=== PATIENT | male | born 1960 | race Hispanic/Latino ===

== ENCOUNTER → 2019-07-26 | Outpatient (CLI) | payer MEDICARE | END | disposition home or self-care (01) | LOC: RAH 09:28 | PROVIDERS: ATTEND Family Medicine | DX: M43.17 Spondylolisthesis, lumbosacral region (principal); M48.07 Spinal stenosis, lumbosacral region; M54.16 Radiculopathy, lumbar region | CPT/HCPCS: 72148 ==

== ENCOUNTER 2020-03-16 18:24 | Inpatient (IN) | payer MEDICARE ==
[~2020-03-16] VITALS: Ht 162.6 cm; Wt 68.9 kg
[2020-03-16] MEDS: AZITHROMYCIN 500MG+NS 250ML 250 ML IV SCH (01:00)
[~2020-03-16 18:24] MED LIST: ETOMIDATE 2 MG/ML 10 ML VIAL IVP ONE; SUCCINYLCHOLINE CHLORIDE 20 MG/ML 10 ML VIAL IVP ONE
[2020-03-16] MEDS ORDERED: SODIUM CHLORIDE 0.9% 1000ML 1,000 ML IV ONE (18:52)
[2020-03-16] MEDS ORDERED: NOREPINEPHRINE 4MG/NS 250ML 250 ML IV ONE ×3 (19:05→21:36)
[2020-03-16] MEDS ORDERED: ZOSYN 3.375GM+NS 50ML 50 ML IV ONE (19:11)
[2020-03-16] MEDS ORDERED: PROPOFOL 1000 MG/100 ML 0 ML IV ONE (19:17)
[2020-03-16 19:59] LABS: ABG BASE EXCESS -11.4 mmol/L (-2.0-3.0); ABG HCO3 13.8 mmol/L (21.0-28.0); ABG OXYGEN SATURATION 99.4 % (95.0-99.0); ABG PCO2 30 mmHg (35-48)
[2020-03-16 20:30] LABS: AMMONIA 29 umol/L (11-32); BASOPHILS % (AUTO) 0.5 % (0.0-5.0); EOSINOPHILS % (AUTO) 0.5 % (0.0-8.0); MEAN CORPUSCULAR HEMOGLOBIN 28.2 pg (27.0-33.0); MEAN CORPUSCULAR HGB CONC 29.4 g/dL (32.0-36.0); MONOCYTES % (AUTO) 4.3 % (3.0-13.0); NEUTROPHILS % (AUTO) 59.9 % (40.0-77.0); NUCLEATED RED BLOOD CELLS 2.2 % (0.0-0.19); PLATELET COUNT (AUTO) 141 K/uL (130-400); RED BLOOD CELL COUNT(AUTO) 5.21 MIL/uL (4.50-6.20); RED CELL DISTRIBUTION WIDTH 14.3 % (11.0-15.5); WHITE BLOOD COUNT (AUTO) 3.7 K/uL (4.8-10.8)
[2020-03-16 20:32] LABS: PARTIAL THROMBOPLASTIN TIME 19.7 SEC (26.3-35.5); PROTHROMBIN TIME 10.8 SEC (9.6-11.6)
[2020-03-16 20:35] LABS: ACETAMINOPHEN < 1 mcg/mL (10-29); ALCOHOL, BLOOD < 3 mg/dL (0-10); SALICYLATE < 2.8 mg/dL (2.8-20.0)
[2020-03-16] MEDS ORDERED: PROPOFOL 1000 MG/100 ML 100 ML IV ONE (20:40)
[2020-03-16] MEDS ORDERED: MEROPENEM 1 GM VIAL ONE (20:40)
[2020-03-16] MEDS ORDERED: METHYLPREDNISOLONE SOD SUCC 125MG/2ML VIAL ONE (20:40)
[2020-03-16] MEDS ORDERED: SODIUM BICARB 50MEQ 50ML VIAL ONE (20:41)
[2020-03-16 20:54] LABS: ALBUMIN 2.5 g/dL (3.5-5.0); BILIRUBIN,TOTAL 0.6 mg/dL (0.2-1.0); CREATININE 3.9 mg/dL (0.5-1.5); POTASSIUM 4.1 mmol/L (3.5-5.1); TOTAL PROTEIN, SERUM 6.3 g/dL (6.0-8.3); TROPONIN I 0.14 ng/mL (0.00-0.06)
[2020-03-16] MEDS ORDERED: PROPOFOL 1000 MG/100 ML 100 ML IV PRN (21:00)
[2020-03-16 21:09] LABS: APPEARANCE,URINE CLEAR (CLEAR); BILIRUBIN,URINE Negative (NEGATIVE); COLOR,URINE Yellow (YELLOW); GLUCOSE, URINE (UA) Negative (NEGATIVE); KETONES,URINE Negative (NEGATIVE); LEUKOCYTE ESTERASE ,URINE Negative (NEGATIVE); NITRATE,URINE Negative (NEGATIVE); OCCULT BLOOD,URINE Negative (NEGATIVE); PROTEIN,URINE Negative (NEGATIVE)
[2020-03-16] MEDS: SODIUM CHLORIDE 0.9% 1000ML 1,000 ML IV SCH (21:15)
[2020-03-16 21:17] LABS: AMPHET/METH SCREEN,URINE NEGATIVE (NEGATIVE); BARBITURATE SCREEN, URINE NEGATIVE (NEGATIVE); BENZODIAZEPINES SCREEN,URINE NEGATIVE (NEGATIVE); CANNABINOID SCREEN,URINE NEGATIVE (NEGATIVE); COCAINE SCREEN,URINE NEGATIVE (NEGATIVE); OPIATE SCREEN,URINE NEGATIVE (NEGATIVE); PHENCYCLIDINE SCREEN,URINE NEGATIVE (NEGATIVE)
[2020-03-16 21:33] LABS: ABG BASE EXCESS -5.2 mmol/L (-2.0-3.0); ABG HCO3 18.2 mmol/L (21.0-28.0); ABG PCO2 30 mmHg (35-48)
[2020-03-16] MEDS ORDERED: DEXTROSE 5%-WATER 1,000 ML IV ONE (21:56)
[2020-03-16 22:03] LABS: CREATININE 3.4 mg/dL (0.5-1.5); POTASSIUM 3.3 mmol/L (3.5-5.1)
--- NOTE | 2020-03-16 22:40 | NUR ---
ADMISSION 2240 RECEIVED ED REPORT FROM PAUL BYRNE INTERNET APPLICATION DEVELOPER PT [phone] PT ARRIVED SEDATED /INTUBATED ON MULTIPLE PRESSORS AT THIS TIME UNABLE TO COMPLETE ADMISSION DATABASE D/T PT CONDITION. PT FROM CORRECTION NO MEDICATIONS AT BEDSIDE. TONYA MYRICK NOTIFIED OF PT ADMIT TO UNIT PT CONDITION V/S AND ORDERS REVIEWED AND CLARIFIED NEW ORDERS RECEIVED AND IMPLEMENTED. PT CONTINUED TO BE MONITORED.
[2020-03-16] MEDS ORDERED: AZITHROMYCIN 500MG+NS 250ML 250 ML IV ONE (23:03)
[2020-03-16 23:36] VITALS: BP 95/61
[2020-03-16 23:41] VITALS: BP 98/63
[2020-03-16 23:46] VITALS: BP 90/61
[2020-03-16 23:51] VITALS: BP 100/71
[2020-03-16 23:56] VITALS: BP 99/67
[2020-03-17] VITALS (61 sets, daily range): BP systolic 88–124; BP diastolic 32–81
[2020-03-17] MEDS: HYDROXYCHLOROQUINE SULFATE 200 MG TAB NG SCH ×3 (00:09→08:55)
[2020-03-17] MEDS: AZITHROMYCIN 500MG+NS 250ML 250 ML IV SCH ×2 (00:09→20:46)
[2020-03-17] MEDS: FAMOTIDINE/PF 20 MG/2 ML VIAL IV SCH ×3 (00:12→20:10)
[2020-03-17] MEDS ORDERED: ATROPINE SULFATE 0.1 MG/ML 10 ML SYG IVP ONE (00:19)
[2020-03-17] MEDS ORDERED: NOREPINEPHRINE 4MG/NS 250ML 250 ML IV ONE (00:36)
[2020-03-17] MEDS: FENTANYL 1000MCG+NS 100ML 100 ML IV SCH ×3 (00:45→16:13)
[2020-03-17] MEDS ORDERED: DOPAMINE 800MG/D5 250ML 250 ML IV ONE (01:07)
[2020-03-17] MEDS: ALBUTEROL INHALER 90MCG/INH IH SCH ×4 (03:15→21:15)
[2020-03-17] MEDS ORDERED: VASOPRESSIN 20 UNITS/ML 1ML VIAL ONE (04:32)
[2020-03-17] MEDS ORDERED: DEXTROSE 5%-WATER 1,000 ML IV ONE (04:45)
[2020-03-17] MEDS: VASOPRESSIN 20 UNITS/NS 100ML IV SCH ×6 (05:03→23:37)
[2020-03-17] MEDS: NOREPINEPHRINE 4MG/NS 250ML 250 ML IV SCH ×4 (05:04→16:26)
[2020-03-17] MEDS: SODIUM CHLORIDE 0.9% 1000ML 1,000 ML IV SCH (05:15)
[2020-03-17] MEDS: DEXTROSE 5%-WATER 1,000 ML IV SCH ×3 (05:15→20:10)
[2020-03-17 05:50] LABS: HEMATOCRIT 44.1 % (42-54); MEAN CORPUSCULAR HEMOGLOBIN 28.4 pg (27.0-33.0); MEAN CORPUSCULAR HGB CONC 29.7 g/dL (32.0-36.0); MEAN CORPUSCULAR VOLUME 95.7 fL (79-99); PLATELET COUNT (AUTO) 106 K/uL (130-400); RED BLOOD CELL COUNT(AUTO) 4.61 MIL/uL (4.50-6.20); RED CELL DISTRIBUTION WIDTH 14.1 % (11.0-15.5); WHITE BLOOD COUNT (AUTO) 3.9 K/uL (4.8-10.8)
[2020-03-17 06:01] LABS: INR 0.99 (0.85-1.15); PROTHROMBIN TIME 10.7 SEC (9.6-11.6)
[2020-03-17 06:08] LABS: BILIRUBIN,TOTAL 0.5 mg/dL (0.2-1.0); CREATININE 3.2 mg/dL (0.5-1.5); MAGNESIUM 2.5 mg/dL (1.80-2.40); PHOSPHORUS 3.5 mg/dL (2.5-4.9); POTASSIUM 3.7 mmol/L (3.5-5.1); TOTAL PROTEIN, SERUM 5.4 g/dL (6.0-8.3); URIC ACID 10.4 mg/dL (2.6-7.2)
[2020-03-17 07:26] LABS: BAND NEUTROPHILS % (MANUAL) 41 % (0-2); LYMPHOCYTES % (MANUAL) 16 % (22-44); MAN.DIFF COMMENT-IMPRESSION MANUAL DIFFERENTIAL; MONOCYTES % (MANUAL) 11 % (2-9); SEGMENTED NEUTROPHILS % 32 % (40-70)
[2020-03-17 07:27] LABS: PLATELET MORPHOLOGY COMMENT SLIGHTLY DECREASED
[2020-03-17] MEDS ORDERED: ENOXAPARIN SODIUM 40 MG/0.4 ML SYRINGE SQ SCH (09:00)
[2020-03-17 10:16] LABS: CREATININE 3.1 mg/dL (0.5-1.5); POTASSIUM 3.8 mmol/L (3.5-5.1)
[2020-03-17] MEDS ORDERED: TAMS-1 PO (10:34)
[2020-03-17] MEDS ORDERED: OXYB-66 PO (10:34)
[2020-03-17] MEDS ORDERED: BENZ2TAB10 PO (10:34)
[2020-03-17] MEDS ORDERED: FAMO20TA8 PO (10:34)
[2020-03-17 11:05] LABS: CRP QUANTITATIVE 245.6 mg/L (0.00-9.0)
[2020-03-17] MEDS ORDERED: ASPI-1197 PO (11:08)
[2020-03-17] MEDS ORDERED: D-MA50PO PO (11:08)
[2020-03-17] MEDS ORDERED: KETO15CR2 TP (11:08)
[2020-03-17] MEDS ORDERED: POLY17PO29 PO (11:08)
[2020-03-17] MEDS ORDERED: ATOR40TA71 PO (11:08)
[2020-03-17] MEDS ORDERED: PSYL0.5240 PO (11:08)
[2020-03-17] MEDS ORDERED: FINA5TAB41 PO (11:08)
[2020-03-17] MEDS ORDERED: OLAN7.5T9 PO (11:08)
[2020-03-17] MEDS ORDERED: LORA0.5T83 PO (11:08)
[2020-03-17] MEDS ORDERED: CHOL100040 PO (11:08)
[2020-03-17] MEDS ORDERED: PANT40TA54 PO (11:08)
[2020-03-17] MEDS ORDERED: LIFI1DRO OU (11:08)
[2020-03-17] MEDS ORDERED: MIRT45TA83 PO (11:08)
[2020-03-17] MEDS ORDERED: PROP10TA72 PO (11:08)
[2020-03-17] MEDS ORDERED: RISP2TAB22 PO (11:08)
[2020-03-17] MEDS ORDERED: OLAN10TA20 PO (11:08)
[2020-03-17] MEDS ORDERED: FLUT50DI2 IH (11:08)
[2020-03-17] MEDS: INSULIN HUMULIN R 100 UNIT/ML 3ML SQ SCH ×2 (11:38→18:00)
--- NOTE | 2020-03-17 12:57 | NUR ---
ALE PLAN PATIENT IN [facility] ICU UNIT VENTED. ZULAY WILL CONTINUE TO FOLLOW. Addendum: 03/17/20 at 1302 by RODOLFO PARKINSON RN CM Amended: Links added.
[2020-03-17] MEDS: MIDODRINE HCL 5 MG TABLET PO SCH ×2 (13:37→20:10)
[2020-03-17] MEDS: CEFEPIME HCL 2 GM VIAL IVP SCH (13:38)
[2020-03-17] MEDS: MIDAZOLAM HCL 50 MG in SODIUM CHLORIDE 0.9% 50 ML IV SCH ×2 (13:40→22:41)
--- NOTE | 2020-03-17 15:46 | NUR ---
RD NOTIFICATION - TUBE FEEDING Tube Feeding recommendation: Vital HP - High Protein, initiate at 25mls/hr. Adv as tolerated by 5mls every 5 hours to goal rate. Goal rate: 50mls/hr (1200kcal, 105gm Protein, 1003 free H2O) Flushes: 100mL every 6hours *Recommendations faxed to 2nd floor, Pod C, [phone]. RN notified. Pt with elevated serum sodium (164) Noted, pt with compromised renal function (BUN 129, Cr 3.1, GFR 22). RD to continue to monitor. Please notify as additional nutrition concerns arise. Addendum: 03/17/20 at [address] Amended: Links added.
--- NOTE | 2020-03-17 15:58 | NUR ---
[facility] CONSULT PATIENT ASSESSED REQUESTED: [facility] RECOMMENDATIONS SUBMITTED AND REPORT GIVEN TO PATIENT'S NURSE.
--- NOTE | 2020-03-17 15:59 | NUR ---
[facility] CONSULT PATIENT ASSESSED REQUESTED: [facility] RECOMMENDATIONS SUBMITTED AND REPORT GIVEN TO PATIENT'S NURSE FABIAN. Addendum: 03/17/20 at 1559 by LESTER ALLEN LVN LVN W Amended: Links added.
[2020-03-17] MEDS: HONEY 1 APPL/ML TUBE TP SCH (16:25)
[2020-03-17 19:07] LABS: CREATININE 2.5 mg/dL (0.5-1.5); POTASSIUM 3.1 mmol/L (3.5-5.1)
[2020-03-17] MEDS: DOPAMINE 800MG/D5 250ML 250 ML IV PRN (23:50)
[2020-03-18] VITALS (94 sets, daily range): BP systolic 87–139; BP diastolic 41–74
[2020-03-18] MEDS: NOREPINEPHRINE 4MG/NS 250ML 250 ML IV SCH ×3 (01:24→14:52)
[2020-03-18] MEDS: FENTANYL 1000MCG+NS 100ML 100 ML IV SCH ×3 (02:04→21:17)
[2020-03-18] MEDS: ALBUTEROL INHALER 90MCG/INH IH SCH ×4 (03:15→20:25)
[2020-03-18] MEDS: MIDODRINE HCL 5 MG TABLET PO SCH ×3 (05:39→20:25)
[2020-03-18] MEDS: DEXTROSE 5%-WATER 1,000 ML IV SCH (05:39)
[2020-03-18 05:42] LABS: BASOPHILS % (AUTO) 0.3 % (0.0-5.0); EOSINOPHILS % (AUTO) 0.2 % (0.0-8.0); HEMATOCRIT 36.6 % (42-54); LYMPHOCYTES % (AUTO) 13.4 % (21.0-51.0); MEAN CORPUSCULAR HEMOGLOBIN 28.5 pg (27.0-33.0); MEAN CORPUSCULAR HGB CONC 30.3 g/dL (32.0-36.0); MEAN CORPUSCULAR VOLUME 94.1 fL (79-99); MONOCYTES % (AUTO) 2.5 % (3.0-13.0); NEUTROPHILS % (AUTO) 80.5 % (40.0-77.0); NUCLEATED RED BLOOD CELLS 0.4 % (0.0-0.19); PLATELET COUNT (AUTO) 93 K/uL (130-400); RED BLOOD CELL COUNT(AUTO) 3.89 MIL/uL (4.50-6.20); RED CELL DISTRIBUTION WIDTH 14.1 % (11.0-15.5); WHITE BLOOD COUNT (AUTO) 12.6 K/uL (4.8-10.8)
[2020-03-18] MEDS: INSULIN HUMULIN R 100 UNIT/ML 3ML SQ SCH ×4 (05:48→18:00)
[2020-03-18 05:52] LABS: CREATININE 2.2 mg/dL (0.5-1.5); MAGNESIUM 2.1 mg/dL (1.80-2.40); PHOSPHORUS 2.2 mg/dL (2.5-4.9)
[2020-03-18] MEDS: VASOPRESSIN 20 UNITS/NS 100ML IV SCH ×2 (07:42)
[2020-03-18] MEDS: ENOXAPARIN SODIUM 30 MG/0.3 ML SQ SCH (08:43)
[2020-03-18] MEDS: CEFEPIME HCL 2 GM VIAL IVP SCH (08:43)
[2020-03-18] MEDS: FAMOTIDINE/PF 20 MG/2 ML VIAL IV SCH ×2 (08:44→20:25)
[2020-03-18] MEDS: HONEY 1 APPL/ML TUBE TP SCH (08:44)
[2020-03-18] MEDS: MIDAZOLAM HCL 50 MG in SODIUM CHLORIDE 0.9% 50 ML IV SCH (10:46)
[2020-03-18 11:01] LABS: CREATININE 1.9 mg/dL (0.5-1.5)
[2020-03-18 11:05] LABS: POTASSIUM 2.9 mmol/L (3.5-5.1)
--- NOTE | 2020-03-18 11:13 | NUR ---
ALE PLAN PATIENT IN ICU VENTED. UNSTABLE CONDITION ZULAY WILL CONTINUE TO FOLLOW. Addendum: 03/18/20 at 1114 by RODOLFO PARKINSON RN CM Amended: Links added.
--- NOTE | 2020-03-18 11:41 | NUR ---
Dr Apodaca Called Dr. Apodaca made aware of critical values of potassium 2.9 and Elevated BUN and creatinine order for potassium protocol received
[2020-03-18] MEDS ORDERED: POTASSIUM CHLORIDE 20 MEQ ERTAB PO PRN (11:45)
[2020-03-18] MEDS: POTASSIUM CHLORIDE 20MEQ/100ML 100 ML IV PRN (12:01)
[2020-03-18] MEDS: POTASSIUM CHLORIDE 10% ELIXIR 20 MEQ/15 ML UDCUP PO PRN ×5 (12:01→22:59)
[2020-03-18] MEDS ORDERED: LACTATED RINGERS 1000ML 1,000 ML IV ONE (12:13)
[2020-03-18] MEDS: LACTATED RINGERS 1000ML 1,000 ML IV SCH ×2 (12:15→20:25)
[2020-03-18] MEDS ORDERED: VANCOMYCIN PROTOCOL PER PHARMACY IV SCH (13:15)
[2020-03-18] MEDS ORDERED: VANCOMYCIN 1.5 GM in SODIUM CHLORIDE 0.9% 250 ML IV SCH (13:15)
[2020-03-18] MEDS: VANCOMYCIN 1GM+NS 250ML 250 ML IV SCH (13:39)
[2020-03-18 19:21] LABS: CREATININE 1.7 mg/dL (0.5-1.5); POTASSIUM 3.3 mmol/L (3.5-5.1)
[2020-03-18] MEDS: AZITHROMYCIN 500MG+NS 250ML 250 ML IV SCH (20:25)
[2020-03-19] VITALS (89 sets, daily range): BP systolic 85–138; BP diastolic 46–82
[2020-03-19] MEDS: ALBUTEROL INHALER 90MCG/INH IH SCH ×4 (03:48→22:16)
[2020-03-19] MEDS: NOREPINEPHRINE 4MG/NS 250ML 250 ML IV SCH (03:48)
[2020-03-19] MEDS: MIDAZOLAM HCL 50 MG in SODIUM CHLORIDE 0.9% 50 ML IV SCH (03:49)
[2020-03-19] MEDS: MIDODRINE HCL 5 MG TABLET PO SCH ×3 (04:35→21:30)
[2020-03-19 04:45] LABS: BASOPHILS % (AUTO) 0.2 % (0.0-5.0); EOSINOPHILS % (AUTO) 2.2 % (0.0-8.0); HEMATOCRIT 31.9 % (42-54); LYMPHOCYTES % (AUTO) 10.4 % (21.0-51.0); MEAN CORPUSCULAR HEMOGLOBIN 27.9 pg (27.0-33.0); MEAN CORPUSCULAR HGB CONC 30.4 g/dL (32.0-36.0); MEAN CORPUSCULAR VOLUME 91.7 fL (79-99); NEUTROPHILS % (AUTO) 84.3 % (40.0-77.0); NUCLEATED RED BLOOD CELLS 0.2 % (0.0-0.19); PLATELET COUNT (AUTO) 80 K/uL (130-400); RED BLOOD CELL COUNT(AUTO) 3.48 MIL/uL (4.50-6.20)
[2020-03-19 04:58] LABS: ALBUMIN 1.5 g/dL (3.5-5.0); BILIRUBIN,TOTAL 0.4 mg/dL (0.2-1.0); CREATININE 1.6 mg/dL (0.5-1.5); MAGNESIUM 2.3 mg/dL (1.80-2.40); PHOSPHORUS 1.8 mg/dL (2.5-4.9); POTASSIUM 4.6 mmol/L (3.5-5.1); TOTAL PROTEIN, SERUM 5.4 g/dL (6.0-8.3)
[2020-03-19] MEDS: INSULIN HUMULIN R 100 UNIT/ML 3ML SQ SCH ×4 (05:43→18:00)
--- NOTE | 2020-03-19 06:00 | NUR ---
[employer] credit control officer paged for critical sodium lab value, awaiting callback.
--- NOTE | 2020-03-19 06:43 | NUR ---
[employer] LOADING UNIT OPERATOR CRIMPING did not return call, re-paged and awaiting for callback.
[2020-03-19] MEDS: FAMOTIDINE/PF 20 MG/2 ML VIAL IV SCH ×2 (10:28→21:30)
[2020-03-19] MEDS: ENOXAPARIN SODIUM 30 MG/0.3 ML SQ SCH (10:29)
[2020-03-19] MEDS: HONEY 1 APPL/ML TUBE TP SCH (10:30)
[2020-03-19] MEDS: CEFEPIME HCL 2 GM VIAL IVP SCH (10:47)
[2020-03-19] MEDS: FENTANYL 1000MCG+NS 100ML 100 ML IV SCH (11:38)
[2020-03-19] MEDS: DOPAMINE 800MG/D5 250ML 250 ML IV PRN (11:45)
[2020-03-19] MEDS ORDERED: DEXTROSE 5%-WATER 1,000 ML IV SCH (12:15)
[2020-03-19] MEDS ORDERED: PHARMACY COMMUNICATION MISC SCH (13:00)
[2020-03-19] MEDS: VASOPRESSIN 20 UNITS/NS 100ML IV SCH ×4 (13:38→22:15)
[2020-03-19] MEDS: DEXTROSE 5%-WATER 1,000 ML IV SCH (13:39)
[2020-03-19 13:52] LABS: CHLORIDE,URINE RANDOM 100 mmol/L (110-250); POTASSIUM,URINE RANDOM 37 mmol/L (25-125); SODIUM,URINE RANDOM 74 mmol/l (40-220)
[2020-03-19] MEDS: VANCOMYCIN 1GM+NS 250ML 250 ML IV SCH (14:13)
[2020-03-19] MEDS: AZITHROMYCIN 500MG+NS 250ML 250 ML IV SCH (21:30)
[2020-03-20] VITALS (42 sets, daily range): BP systolic 85–125; BP diastolic 47–78
[2020-03-20] MEDS: DEXTROSE 5%-WATER 1,000 ML IV SCH ×4 (03:39→22:11)
[2020-03-20] MEDS: ALBUTEROL INHALER 90MCG/INH IH SCH ×4 (03:39→20:31)
[2020-03-20 05:31] LABS: BASOPHILS % (AUTO) 0.2 % (0.0-5.0); EOSINOPHILS % (AUTO) 0.6 % (0.0-8.0); HEMATOCRIT 31.2 % (42-54); LYMPHOCYTES % (AUTO) 6.7 % (21.0-51.0); MEAN CORPUSCULAR HEMOGLOBIN 28.4 pg (27.0-33.0); MEAN CORPUSCULAR HGB CONC 29.8 g/dL (32.0-36.0); MEAN CORPUSCULAR VOLUME 95.1 fL (79-99); MONOCYTES % (AUTO) 3.8 % (3.0-13.0); PLATELET COUNT (AUTO) 66 K/uL (130-400); RED BLOOD CELL COUNT(AUTO) 3.28 MIL/uL (4.50-6.20); RED CELL DISTRIBUTION WIDTH 14.4 % (11.0-15.5); WHITE BLOOD COUNT (AUTO) 9.6 K/uL (4.8-10.8)
[2020-03-20] MEDS: MIDODRINE HCL 5 MG TABLET PO SCH ×3 (05:49→20:31)
[2020-03-20 05:53] LABS: ALBUMIN 1.6 g/dL (3.5-5.0); BILIRUBIN,TOTAL 0.3 mg/dL (0.2-1.0); CREATININE 1.4 mg/dL (0.5-1.5); PHOSPHORUS 2.6 mg/dL (2.5-4.9); POTASSIUM 4.1 mmol/L (3.5-5.1); TOTAL PROTEIN, SERUM 5.6 g/dL (6.0-8.3)
[2020-03-20] MEDS: INSULIN HUMULIN R 100 UNIT/ML 3ML SQ SCH ×4 (06:00→18:00)
[2020-03-20] MEDS: FENTANYL 1000MCG+NS 100ML 100 ML IV SCH (06:39)
[2020-03-20] MEDS: VASOPRESSIN 20 UNITS/NS 100ML IV SCH ×2 (06:40)
[2020-03-20] MEDS: FAMOTIDINE/PF 20 MG/2 ML VIAL IV SCH ×2 (08:02→20:31)
[2020-03-20] MEDS: CEFEPIME HCL 2 GM VIAL IVP SCH (08:27)
[2020-03-20 09:17] LABS: INR 0.96 (0.85-1.15); PROTHROMBIN TIME 10.4 SEC (9.6-11.6)
[2020-03-20] MEDS: HONEY 1 APPL/ML TUBE TP SCH (09:31)
[2020-03-20 09:55] LABS: CREATININE,URINE RANDOM 28 mg/dL (30-135); POTASSIUM,URINE RANDOM 40 mmol/L (25-125); SODIUM,URINE RANDOM 70 mmol/l (40-220)
--- NOTE | 2020-03-20 10:30 | NUR ---
PICC PICC LINE 6FRENCH 3 LUMEN INSERTED TO RIGHT UPPER ARM USING STERILE TECHNIQUE, NO ADVERSE REACTIONS NOTED. PT HARJIT WELL. ALL 3 PORTS FLUSHED WITHOUT DIFFICULTY, AND GOOD BLOOD RETURN TO ALL PORTS. PICC LINE INSERTED AT 43CM RACHEL AND 7 CM EXPOSED, STERILE DRESSING APPLIED AFTER COMPLETION. REPORT GIVEN TO Rusty RAMIREZ RN. PICC LINE READY TO BE USED PER [facility] CONFIRMATION TIP PLACED AT LOWER 1/3 SVC OR CAJ.
[2020-03-20 13:06] LABS: ABG HCO3 20.3 mmol/L (21.0-28.0); ABG OXYGEN SATURATION 95.4 % (95.0-99.0); ABG PCO2 32 mmHg (35-48)
[2020-03-20 13:06] LABS: ABG BASE EXCESS -1.7 mmol/L (-2.0-3.0); ABG HCO3 19.8 mmol/L (21.0-28.0); ABG OXYGEN SATURATION 98.6 % (95.0-99.0); ABG PCO2 26 mmHg (35-48)
[2020-03-20 13:07] LABS: ABG BASE EXCESS -3.8 mmol/L (-2.0-3.0); ABG HCO3 19.1 mmol/L (21.0-28.0); ABG OXYGEN SATURATION 98.9 % (95.0-99.0); ABG PCO2 30 mmHg (35-48)
--- NOTE | 2020-03-20 13:54 | NUR ---
SPOKE TO SISTER VALERIE BARNES VIA PHONE PT HAS SPECIAL NEEDS. HAS LIVED AT [facility] FOR SEVERAL YEARS, HAS BEEN IN AND OUT OF HOSPITAL- LAST TO [facility]- AND THEN TO [facility] AND THEN BACK TO [facility]. HAS NOT SEEN PATIENT SINCE 02/02. NORMALLY ABLE TO MAKE NEEDS KNOWN, WEAK, NEEDS ASSISTANCE TO AMBULATE, BAILEE AT [facility] IS CONTACT [phone] PLAN OF HAVE SISTER TO BEDSIDE. PT IS CRITICALLY ILL, STILL ON PRESSORS, AND FAMILY MAY NEED VISUALS TO UNDERSTAND SEVERITY. Addendum: 03/20/20 at 1358 by EMILIA ARMANDO RN Amended: Links added.
[2020-03-20 14:00] LABS: ABG BASE EXCESS 0.7 mmol/L (-2.0-3.0); ABG OXYGEN SATURATION 99.1 % (95.0-99.0); ABG PCO2 31 mmHg (35-48)
--- NOTE | 2020-03-20 14:18 | NUR ---
RD FOLLOW UP Pt remains intubated and sedated on Tube feeding (Vital HP). Tube feedings held pending procedure, as per RN. Noted, 100mL residual yesterday evening. Elevated serum sodium (156). Recommend continue tube feeding, post procedure. Recommend continue Flushes at 250mL every [address] to monitor tolerance, residuals, weight, nutrition labs. Please notify as additional concerns arise. Thank you. Addendum: 03/20/20 at [address] Amended: Links added.
[2020-03-20] MEDS: AZITHROMYCIN 500MG+NS 250ML 250 ML IV SCH (20:31)
[2020-03-20] MEDS ORDERED: HEPARIN SODIUM 5000UNIT/ML 1ML VIAL SQ SCH (21:00)
[2020-03-20] MEDS ORDERED: VASOPRESSIN 20 UNITS/ML 1ML VIAL ONE (21:34)
--- NOTE | 2020-03-20 21:40 | NUR ---
[employer]AR AND [employer] PUMP OPERATOR Rico called for critical sodium level and increased urine output. Orders received and entered in system. Free water increased to 350 Q4H, D5W given and insulin sliding scale implemented.
[2020-03-20] MEDS ORDERED: VASOPRESSIN 20 UNITS in SODIUM CHLORIDE 0.9% 100 ML IV SCH (22:00)
[2020-03-21] VITALS (23 sets, daily range): BP systolic 94–140; BP diastolic 55–80
[2020-03-21] MEDS: DEXTROSE 5%-WATER 1,000 ML IV SCH ×3 (02:43→11:56)
[2020-03-21] MEDS: ALBUTEROL INHALER 90MCG/INH IH SCH ×4 (03:15→21:15)
[2020-03-21 05:00] LABS: BASOPHILS % (AUTO) 0.1 % (0.0-5.0); EOSINOPHILS % (AUTO) 4.2 % (0.0-8.0); HEMATOCRIT 32.6 % (42-54); LYMPHOCYTES % (AUTO) 10.1 % (21.0-51.0); MEAN CORPUSCULAR HEMOGLOBIN 28.8 pg (27.0-33.0); MEAN CORPUSCULAR HGB CONC 30.7 g/dL (32.0-36.0); MEAN CORPUSCULAR VOLUME 93.9 fL (79-99); MONOCYTES % (AUTO) 4.4 % (3.0-13.0); NEUTROPHILS % (AUTO) 79.9 % (40.0-77.0); PLATELET COUNT (AUTO) 61 K/uL (130-400); RED BLOOD CELL COUNT(AUTO) 3.47 MIL/uL (4.50-6.20); RED CELL DISTRIBUTION WIDTH 13.9 % (11.0-15.5); WHITE BLOOD COUNT (AUTO) 6.8 K/uL (4.8-10.8)
[2020-03-21 05:13] LABS: FIBRINOGEN 640 mg/dL (180-350); INR 0.95 (0.85-1.15); PROTHROMBIN TIME 10.3 SEC (9.6-11.6)
[2020-03-21 05:16] LABS: ALBUMIN 1.5 g/dL (3.5-5.0); BILIRUBIN,TOTAL 0.4 mg/dL (0.2-1.0); PHOSPHORUS 2.8 mg/dL (2.5-4.9); POTASSIUM 3.4 mmol/L (3.5-5.1); TOTAL PROTEIN, SERUM 5.4 g/dL (6.0-8.3)
[2020-03-21 05:40] LABS: D-DIMER 1133 ng/mL (0-500)
[2020-03-21] MEDS: MIDODRINE HCL 5 MG TABLET PO SCH ×3 (05:57→20:46)
[2020-03-21] MEDS: INSULIN HUMULIN R 100 UNIT/ML 3ML SQ SCH ×5 (05:58→23:49)
[2020-03-21] MEDS: POTASSIUM CHLORIDE 20MEQ/100ML 100 ML IV PRN ×3 (06:31→12:07)
[2020-03-21] MEDS: DOPAMINE 800MG/D5 250ML 250 ML IV PRN (06:31)
[2020-03-21] MEDS: FAMOTIDINE/PF 20 MG/2 ML VIAL IV SCH ×2 (09:32→20:46)
[2020-03-21] MEDS: CEFEPIME HCL 2 GM VIAL IVP SCH (09:33)
[2020-03-21] MEDS: METOCLOPRAMIDE 10 MG/2 ML VIAL IVP SCH ×3 (09:33→20:46)
[2020-03-21] MEDS: HONEY 1 APPL/ML TUBE TP SCH (09:33)
[2020-03-21 09:56] LABS: ABG BASE EXCESS 0.3 mmol/L (-2.0-3.0); ABG HCO3 22.6 mmol/L (21.0-28.0); ABG PCO2 30 mmHg (35-48)
--- NOTE | 2020-03-21 11:00 | NUR ---
SAW PATIENT AT BEDSIDE, TRACKS W EYES, FACIAL RESPONSE TO SISTERS NAME NO VISIT FROM SISTER YET, [facility] KASSIDY MACKENZIE CAN VISIT IF SHE REQUESTS PRESSORS BEING WEANED. Addendum: 03/21/20 at 1539 by EMILIA ARMANDO RN CM Amended: Links added.
[2020-03-21] MEDS ORDERED: FENTANYL CITRATE PF 50 MCG/1 ML 2ML VIAL IVP PRN (11:15)
[2020-03-21] MEDS: AZITHROMYCIN 500MG+NS 250ML 250 ML IV SCH (20:46)
[2020-03-22] VITALS (23 sets, daily range): BP systolic 89–109; BP diastolic 51–67
[2020-03-22] MEDS: DEXTROSE 5%-WATER 1,000 ML IV SCH ×3 (00:45→15:11)
[2020-03-22] MEDS: ALBUTEROL INHALER 90MCG/INH IH SCH ×3 (03:15→15:01)
[2020-03-22] MEDS: METOCLOPRAMIDE 10 MG/2 ML VIAL IVP SCH ×4 (03:40→20:06)
[2020-03-22 04:17] LABS: BASOPHILS % (AUTO) 0.2 % (0.0-5.0); EOSINOPHILS % (AUTO) 7.8 % (0.0-8.0); HEMATOCRIT 29.5 % (42-54); LYMPHOCYTES % (AUTO) 15.9 % (21.0-51.0); MEAN CORPUSCULAR HEMOGLOBIN 28.3 pg (27.0-33.0); MEAN CORPUSCULAR HGB CONC 30.2 g/dL (32.0-36.0); MEAN CORPUSCULAR VOLUME 93.7 fL (79-99); MONOCYTES % (AUTO) 5.1 % (3.0-13.0); NEUTROPHILS % (AUTO) 69.4 % (40.0-77.0); PLATELET COUNT (AUTO) 87 K/uL (130-400); RED BLOOD CELL COUNT(AUTO) 3.15 MIL/uL (4.50-6.20); RED CELL DISTRIBUTION WIDTH 13.6 % (11.0-15.5); WHITE BLOOD COUNT (AUTO) 6.3 K/uL (4.8-10.8)
[2020-03-22 04:29] LABS: MAGNESIUM 2.3 mg/dL (1.80-2.40); PHOSPHORUS 3.2 mg/dL (2.5-4.9); POTASSIUM 3.6 mmol/L (3.5-5.1)
[2020-03-22] MEDS: MIDODRINE HCL 5 MG TABLET PO SCH ×3 (05:33→20:05)
[2020-03-22] MEDS: INSULIN HUMULIN R 100 UNIT/ML 3ML SQ SCH ×4 (06:00→23:37)
[2020-03-22] MEDS: HONEY 1 APPL/ML TUBE TP SCH (08:00)
[2020-03-22] MEDS: FAMOTIDINE/PF 20 MG/2 ML VIAL IV SCH ×2 (08:00→20:06)
[2020-03-22] MEDS: POTASSIUM CHLORIDE 20MEQ/100ML 100 ML IV PRN ×2 (08:00→15:13)
[2020-03-22] MEDS: CEFEPIME HCL 2 GM VIAL IVP SCH (08:00)
[2020-03-22] MEDS: DOPAMINE 800MG/D5 250ML 250 ML IV PRN (10:20)
[2020-03-22 10:53] LABS: ABG BASE EXCESS -1.9 mmol/L (-2.0-3.0); ABG HCO3 21.1 mmol/L (21.0-28.0); ABG PCO2 32 mmHg (35-48)
[2020-03-22] MEDS ORDERED: RACEPINEPHRINE HCL 2.25% 0.5 ML NEB SOLN NEB PRN (11:30)
[2020-03-22] MEDS: AZITHROMYCIN 500MG+NS 250ML 250 ML IV SCH (20:06)
[2020-03-22] MEDS: ALBUTEROL SULFATE 0.083% 2.5 MG/3 ML INH IH SCH (20:32)
[2020-03-23] VITALS (24 sets, daily range): BP systolic 86–117; BP diastolic 50–67
[2020-03-23] MEDS: DEXTROSE 5%-WATER 1,000 ML IV SCH ×2 (03:34→18:53)
[2020-03-23 03:48] LABS: BASOPHILS % (AUTO) 0.1 % (0.0-5.0); HEMATOCRIT 29.2 % (42-54); LYMPHOCYTES % (AUTO) 14.5 % (21.0-51.0); MEAN CORPUSCULAR HEMOGLOBIN 27.9 pg (27.0-33.0); MEAN CORPUSCULAR HGB CONC 30.5 g/dL (32.0-36.0); MEAN CORPUSCULAR VOLUME 91.5 fL (79-99); MONOCYTES % (AUTO) 3.9 % (3.0-13.0); PLATELET COUNT (AUTO) 96 K/uL (130-400); RED BLOOD CELL COUNT(AUTO) 3.19 MIL/uL (4.50-6.20); RED CELL DISTRIBUTION WIDTH 13.3 % (11.0-15.5); WHITE BLOOD COUNT (AUTO) 6.9 K/uL (4.8-10.8)
[2020-03-23 04:06] LABS: POTASSIUM 3.4 mmol/L (3.5-5.1)
[2020-03-23] MEDS: METOCLOPRAMIDE 10 MG/2 ML VIAL IVP SCH ×4 (04:25→19:56)
[2020-03-23] MEDS: MIDODRINE HCL 5 MG TABLET PO SCH ×3 (04:50→19:56)
[2020-03-23] MEDS: INSULIN HUMULIN R 100 UNIT/ML 3ML SQ SCH ×4 (04:54→23:13)
[2020-03-23] MEDS: ALBUTEROL SULFATE 0.083% 2.5 MG/3 ML INH IH SCH ×5 (06:10→23:17)
[2020-03-23] MEDS: FAMOTIDINE/PF 20 MG/2 ML VIAL IV SCH ×2 (08:54→19:55)
[2020-03-23] MEDS: CEFEPIME HCL 2 GM VIAL IVP SCH (08:54)
[2020-03-23] MEDS: POTASSIUM CHLORIDE 20MEQ/100ML 100 ML IV PRN ×2 (08:55→19:34)
[2020-03-23] MEDS: HONEY 1 APPL/ML TUBE TP SCH (08:55)
[2020-03-23] MEDS: DESMOPRESSIN ACETATE NASAL SCH ×2 (10:31→19:55)
--- NOTE | 2020-03-23 11:59 | NUR ---
CHART REVIEWED, VERY WEAK AND DEBILITATED, BUT EXTUBATED WILL NEED POSS PLACEMENT AGAIN AT [place] [facility] WHEN DISCHARGED LAST FROM HOSPITAL([facility], J[facility]UARY 2020) - WILL FOLLOW UP TUESDAY TO SEE IF STILL HAS SNF DAYS FOR THERAPY. CM TO FOLLOW Addendum: 03/23/20 at 1201 by EMILIA ARMANDO RN CM Amended: Links added.
[2020-03-23] MEDS: AZITHROMYCIN 500MG+NS 250ML 250 ML IV SCH (19:56)
[2020-03-24] VITALS (36 sets, daily range): BP systolic 90–115; BP diastolic 50–75
[2020-03-24] MEDS: DEXTROSE 5%-WATER 1,000 ML IV SCH ×2 (03:19→15:00)
[2020-03-24] MEDS: METOCLOPRAMIDE 10 MG/2 ML VIAL IVP SCH ×4 (03:35→21:09)
[2020-03-24 03:56] LABS: BASOPHILS % (AUTO) 0.2 % (0.0-5.0); EOSINOPHILS % (AUTO) 4.6 % (0.0-8.0); HEMATOCRIT 27.1 % (42-54); LYMPHOCYTES % (AUTO) 12.3 % (21.0-51.0); MEAN CORPUSCULAR HEMOGLOBIN 28.1 pg (27.0-33.0); MEAN CORPUSCULAR HGB CONC 30.6 g/dL (32.0-36.0); MEAN CORPUSCULAR VOLUME 91.9 fL (79-99); MONOCYTES % (AUTO) 3.2 % (3.0-13.0); PLATELET COUNT (AUTO) 121 K/uL (130-400); RED BLOOD CELL COUNT(AUTO) 2.95 MIL/uL (4.50-6.20); RED CELL DISTRIBUTION WIDTH 13.2 % (11.0-15.5); WHITE BLOOD COUNT (AUTO) 10.5 K/uL (4.8-10.8)
[2020-03-24 04:18] LABS: CREATININE 0.9 mg/dL (0.5-1.5); POTASSIUM 3.5 mmol/L (3.5-5.1)
[2020-03-24] MEDS: POTASSIUM CHLORIDE 20MEQ/100ML 100 ML IV PRN ×2 (04:24→08:19)
[2020-03-24] MEDS: POTASSIUM CHLORIDE 10% ELIXIR 20 MEQ/15 ML UDCUP PO PRN (04:24)
[2020-03-24] MEDS: MIDODRINE HCL 5 MG TABLET PO SCH ×3 (04:35→21:00)
[2020-03-24] MEDS: INSULIN HUMULIN R 100 UNIT/ML 3ML SQ SCH ×3 (05:30→17:44)
[2020-03-24] MEDS: ALBUTEROL SULFATE 0.083% 2.5 MG/3 ML INH IH SCH ×4 (06:28→23:04)
[2020-03-24] MEDS: CEFEPIME HCL 2 GM VIAL IVP SCH (08:09)
[2020-03-24] MEDS: FAMOTIDINE/PF 20 MG/2 ML VIAL IV SCH ×2 (08:09→21:00)
[2020-03-24] MEDS: HONEY 1 APPL/ML TUBE TP SCH (08:10)
[2020-03-24] MEDS: DESMOPRESSIN ACETATE NASAL SCH ×2 (08:10→21:07)
--- NOTE | 2020-03-24 09:05 | NUR ---
DYSPHAGIA EVAL COMPLETED +S/S OF ASPIRATION. RECOMMEND RESIDENTIAL SUBSTANCE ABUSE COUNSELOR ALTERNATE MEANS OF NUTRITION/HYDRATION AT THIS TIME. RECOMMENDATIONS: DYSPHAGIA THERAPY 3-5XWEEK TO INCREASE ORAL MOTOR STRENGTH AND PHARYNGEAL SWALLOW: LTG#1: Pt WILL TOLERATE LEAST RESTRICTIVE DIET TO MEET NUTRITION/HYDRATION WITH NO S/S OF ASPIRATION. LTG#2: SKILLED EDUCATION Pt/FAMILY/STAFF STG#1: Pt WILL PARTICIPATE IN LARYNGEAL ELEVATION/EXCURSION EXERCISES WITH 80% ACCURACY. STG#2: Pt WILL PARTICIPATE IN TONGUE BASE RETRACTION EXERCISES WITH 80% ACCURACY. STG#3: Pt WILL PARTICIPATE IN ORAL MOTOR EXERCISES WITH 80% ACCURACY. STG#4: Pt WILL TOLERATE THERAPEUTIC TRIALS OF ICE CHIPS WITH NO OVERT S/S OF ASPIRATION. STG#5: Pt WILL BE ABLE TO PARTICIPATE IN MBSS AFTER 2-4 WEEKS OF THERAPEUTIC INTERVENTION. STG#6: SKILLED EDUCATION Pt/FAMILY/STAFF. HEALTH UNDERWRITER COORDINATED CARE WITH NURSE HENDERSON. Addendum: 03/24/[address] DAISY PATEL Amended: Links added.
--- NOTE | 2020-03-24 13:06 | NUR ---
RD FOLLOW UP Pt s/p Extubation. Recommend modify tube feeding formula, as medically feasible. Nutritional needs reassessed. Recommend Initiate Glucerna 1.5 @30mls/hr for first 5 hours. Increase rate as tolerated by 5mL every 5hours to Goal Goal rate: 45mls/hr (1620kcal, 89gm Protein, 820 free H2O) Recommended flushes: 245ml Q6hrs. Pt s/p ST eval; correction Altered means nutrition/hydration recommended. Bolus recommendations provided if Pt is discharged with tube feeding. Bolus and Continuous Tube Feeding recommendations provided in Pt chart. Noted, LBM 03/19/20. RD to continue to monitor. Please notify as additional nutrition concerns arise. Thank you. Addendum: 03/24/20 at [address] Amended: Links added.
--- NOTE | 2020-03-24 14:06 | NUR ---
APPROVAL FOR FAMILY VISIT- GUARDIAN VALERIE BARNES CALL TO jose ZUNIGA, CALL TO ELIF PARKINSON AT BEDSIDE, CALL TO SECIRITY ADVISED RODOLFO BISWAS, CALL BACK TO FAMILY- 15 MINS ONLY VERBALIZED AGUSTIN, PATIENT IS IN A MULTIPLE ROOM Addendum: 03/24/20 at 1410 by EMILIA ARMANDO RN CM Amended: Links added.
--- NOTE | 2020-03-24 14:08 | NUR ---
REQUEST FOR FAMILY VISIT-- APPROVED RECD OK FROM EFRAIN, VERIFIED WITH SECURITY CALL TO ELIF PARKINSON AT BEDSIDE; CALL BACK TO VALERIE BARAJAS APPROVED 15 MINS OR LESS, IN ROOM WITH OTHER PATIENTS, VERBALIZED UNDERSTANDING Addendum: 03/24/20 at 1410 by EMILIA ARMANDO RN CM Amended: Links added.
[2020-03-24] MEDS: DOPAMINE 800MG/D5 250ML 250 ML IV PRN (15:00)
--- NOTE | 2020-03-24 15:20 | NUR ---
FAMILY AT BEDSIDE. VALERIE ALMODOVAR, PATIENT'S SISTER, ALLOTTED FIFTEEN MINUTE VISITATION AT THIS TIME. DR. SO ABLE TO UPDATE HER VIA TELEPHONE CALL. FAMILY MEMBER'S QUESTIONS ANSWERED BY DR. SO AT THIS TIME.
--- NOTE | 2020-03-24 23:30 | NUR ---
Sputum for C/S collected per RT, sent to lab. Urine for osmolality collected, sent to lab.
[2020-03-25] VITALS (58 sets, daily range): BP systolic 85–121; BP diastolic 48–77
[2020-03-25] MEDS: DEXTROSE 5%-WATER 1,000 ML IV SCH ×4 (00:52→22:08)
[2020-03-25 03:41] LABS: HEMATOCRIT 28.9 % (42-54); MEAN CORPUSCULAR HEMOGLOBIN 28.4 pg (27.0-33.0); MEAN CORPUSCULAR HGB CONC 31.1 g/dL (32.0-36.0); MEAN CORPUSCULAR VOLUME 91.2 fL (79-99); RED BLOOD CELL COUNT(AUTO) 3.17 MIL/uL (4.50-6.20); RED CELL DISTRIBUTION WIDTH 13.3 % (11.0-15.5); WHITE BLOOD COUNT (AUTO) 13.6 K/uL (4.8-10.8)
[2020-03-25 04:00] LABS: ALANINE AMINOTRANSFERASE 105 U/L (12-78); ALBUMIN 1.9 g/dL (3.5-5.0); ASPARTATE AMINOTRANSFERASE 56 U/L (10-37); BILIRUBIN,TOTAL 0.3 mg/dL (0.2-1.0); CARBON DIOXIDE 25 mmol/L (21-32); CHLORIDE 111 mmol/L (101-111); CREATININE 0.9 mg/dL (0.5-1.5); GLOMERULAR FILTR. RATE CALC 92 mL/min (>60); GLUCOSE,RANDOM 110 mg/dL (70-105); POTASSIUM 4.1 mmol/L (3.5-5.1); SODIUM SERUM 147 mmol/L (136-145); TOTAL PROTEIN, SERUM 6.4 g/dL (6.0-8.3); UREA NITROGEN, BLOOD 27 mg/dL (7-18)
[2020-03-25 04:01] LABS: AMMONIA < 10 umol/L (11-32)
[2020-03-25] MEDS: INSULIN HUMULIN R 100 UNIT/ML 3ML SQ SCH ×4 (06:00→18:00)
[2020-03-25] MEDS: ALBUTEROL SULFATE 0.083% 2.5 MG/3 ML INH IH SCH ×4 (06:42→23:28)
[2020-03-25] MEDS: MIDODRINE HCL 5 MG TABLET PO SCH ×3 (06:54→22:06)
[2020-03-25] MEDS: METOCLOPRAMIDE 10 MG/2 ML VIAL IVP SCH ×4 (06:55→21:18)
[2020-03-25] MEDS: FAMOTIDINE/PF 20 MG/2 ML VIAL IV SCH ×2 (08:16→22:06)
[2020-03-25] MEDS: CEFEPIME HCL 2 GM VIAL IVP SCH (08:16)
[2020-03-25] MEDS: DESMOPRESSIN ACETATE NASAL SCH ×2 (08:18→22:07)
[2020-03-25] MEDS: HONEY 1 APPL/ML TUBE TP SCH (08:18)
--- NOTE | 2020-03-25 09:10 | NUR ---
TREATMENT COMPLETED S: Pt UNRESPONSIVE IN BED BUT IS ABLE TO TRACT SPEAKER. Pt CURRENTLY ON NG TUBE FEEDINGS. Pt CONTINUOUSLY COUGHING DURING SPEECH TREATMENT WITH MOUTH POSTURE REMAINING OPEN. O: Pt UNABLE TO FOLLOW COMMANDS BY SQUEEZING HAND OR GESTURES TO PROCEED WITH SWALLOWING GOALS. OPERATION MANAGER PROVIDED ORAL STIMULATION EXERCISES AND THERMAL TACTILE STIMULATION WITH 0% ACCURACY GIVEN MAX VERBAL AND VISUAL CUES. A: Pt UNABLE TO DEMONSTRATE UNDERSTANDING OF RISKS AND CONSEQUENCES OF ASPIRATION AT THIS TIME. Pt CONTINUES AT HIGH RISK FOR ASPIRATION IN CURRENT STATE. P: RECOMMEND THE CONTINUATION OF OTHER MEANS OF NUTRITION/HYDRATION. OPERATION MANAGER WILL CONTINUE TO PROVIDE SPEECH THERAPY TARGETING SWALLOWING GOALS FOR THE LENGTH OF TIME INT [facility]. OPERATION MANAGER COORDINATED CARE AND RECOMMENDATIONS WITH NURSE. Addendum: 03/25/[address] DAISY PATEL Amended: Links added.
[2020-03-26] VITALS (24 sets, daily range): BP systolic 91–120; BP diastolic 52–74
[2020-03-26] MEDS: METOCLOPRAMIDE 10 MG/2 ML VIAL IVP SCH ×4 (03:59→20:01)
[2020-03-26] MEDS: MIDODRINE HCL 5 MG TABLET PO SCH ×3 (03:59→21:03)
[2020-03-26 04:51] LABS: BASOPHILS % (AUTO) 0.2 % (0.0-5.0); EOSINOPHILS % (AUTO) 2.7 % (0.0-8.0); HEMATOCRIT 28.8 % (42-54); LYMPHOCYTES % (AUTO) 9.9 % (21.0-51.0); MEAN CORPUSCULAR HEMOGLOBIN 28.6 pg (27.0-33.0); MEAN CORPUSCULAR HGB CONC 31.6 g/dL (32.0-36.0); MEAN CORPUSCULAR VOLUME 90.6 fL (79-99); MONOCYTES % (AUTO) 3.1 % (3.0-13.0); NEUTROPHILS % (AUTO) 82.6 % (40.0-77.0); PLATELET COUNT (AUTO) 178 K/uL (130-400); RED BLOOD CELL COUNT(AUTO) 3.18 MIL/uL (4.50-6.20); RED CELL DISTRIBUTION WIDTH 13.3 % (11.0-15.5); WHITE BLOOD COUNT (AUTO) 13.5 K/uL (4.8-10.8)
[2020-03-26 05:13] LABS: BILIRUBIN,DIRECT 0.1 mg/dL (0.0-0.3); BILIRUBIN,TOTAL 0.3 mg/dL (0.2-1.0); CREATININE 0.9 mg/dL (0.5-1.5); POTASSIUM 3.8 mmol/L (3.5-5.1); THYROID STIMULATING HORMONE 0.23 uIU/mL (0.36-3.74); TOTAL PROTEIN, SERUM 6.5 g/dL (6.0-8.3)
[2020-03-26] MEDS: INSULIN HUMULIN R 100 UNIT/ML 3ML SQ SCH ×2 (06:00)
[2020-03-26] MEDS: ALBUTEROL SULFATE 0.083% 2.5 MG/3 ML INH IH SCH ×4 (06:35→23:19)
[2020-03-26] MEDS: FAMOTIDINE/PF 20 MG/2 ML VIAL IV SCH ×2 (08:45→20:54)
[2020-03-26] MEDS: CEFEPIME HCL 2 GM VIAL IVP SCH (08:45)
[2020-03-26] MEDS: DESMOPRESSIN ACETATE NASAL SCH ×2 (08:46→20:46)
[2020-03-26] MEDS: HONEY 1 APPL/ML TUBE TP SCH (08:46)
--- NOTE | 2020-03-26 08:50 | NUR ---
SWALLOWING TREATMENT COMPLETED S: Pt CONTINUES TO BE NON VERBAL. Pt MAKES EYE CONTACT WITH SPEAKER FOR A SHORT WHILE. Pt SLIGHTLY GESTURES TO YES/NO QUESTIONS GIVEN MAX CUES. Pt CURRENTLY ON NG TUBE FEEDINGS. O: Pt CURRENTLY TARGETING SWALLOWING GOALS, RESULTS ARE FOLLOWS: 1. Pt PARTICIPATED IN LARYNGEAL ELEVATION/EXCURSION EXERCISES WITH 0% ACCURACY GIVEN MAX CUES. 2. Pt PARTICIPATED IN TONGUE BASE RETRACTION EXERCISES WITH 10% ACCURACY GIVEN MAX VERBAL AND VISUAL CUES. 3. Pt PARTICIPATED IN ORAL MOTOR EXERCISES WITH 40% ACCURACY GIVEN MAX VERBAL AND VISUAL CUES. 4. SKILLED EDUCATION Pt/FAMILY/STAFF: COMPLETED A: Pt UNABLE TO DEMONSTRATE UNDERSTANDING OF RISKS AND CONSEQUENCES OF ASPIRATION AT THIS TIME; NURSE DI BOX NOTIFIED. Pt CONTINUES AT HIGH RISK FOR ASPIRATION IN CURRENT STATE. P: RECOMMEND THE CONTINUATION OF OTHER MEANS OF NUTRITION/HYDRATION. CHANNEL LAYER WILL CONTINUE TO PROVIDE SPEECH THERAPY TARGETING SWALLOWING GOALS FOR THE LENGTH OF TIME IN THE HOSPITAL. CHANNEL LAYER COORDINATED CARE AND RECOMMENDATIONS WITH NURSE WATTS. Addendum: 03/26/[address] DAISY PATEL Amended: Links added.
[2020-03-26] MEDS: DOPAMINE 800MG/D5 250ML 250 ML IV PRN (16:31)
[2020-03-26] MEDS: DEXTROSE 5%-WATER 1,000 ML IV SCH (16:31)
--- NOTE | 2020-03-26 20:00 | NUR ---
ASSESSMENT PT RESTING QUIETLY AND CALMLY IN BED. PT IS NON-VERBAL BUT TRACKING, FLAT AFFECT. IV FLUIDS INFUSING WITHOUT DIFFICULTY. HOB AT [address] BILATERALLY. ASSESSMENT COMPLETED, SEE FLOW SHEET.
[2020-03-27] VITALS (23 sets, daily range): BP systolic 84–120; BP diastolic 48–71
[2020-03-27] MEDS: DEXTROSE 5%-WATER 1,000 ML IV SCH ×3 (03:05→20:02)
[2020-03-27] MEDS: METOCLOPRAMIDE 10 MG/2 ML VIAL IVP SCH ×4 (03:06→21:02)
[2020-03-27 05:09] LABS: HEMATOCRIT 28.5 % (42-54); MEAN CORPUSCULAR HEMOGLOBIN 28.5 pg (27.0-33.0); MEAN CORPUSCULAR HGB CONC 31.2 g/dL (32.0-36.0); MEAN CORPUSCULAR VOLUME 91.3 fL (79-99); PLATELET COUNT (AUTO) 214 K/uL (130-400); RED BLOOD CELL COUNT(AUTO) 3.12 MIL/uL (4.50-6.20); RED CELL DISTRIBUTION WIDTH 13.6 % (11.0-15.5); WHITE BLOOD COUNT (AUTO) 15.1 K/uL (4.8-10.8)
[2020-03-27] MEDS: MIDODRINE HCL 5 MG TABLET PO SCH ×3 (05:24→21:02)
[2020-03-27 05:41] LABS: ALBUMIN 1.9 g/dL (3.5-5.0); BILIRUBIN,TOTAL 0.3 mg/dL (0.2-1.0); CREATININE 0.8 mg/dL (0.5-1.5); MAGNESIUM 2.1 mg/dL (1.80-2.40); PHOSPHORUS 3.3 mg/dL (2.5-4.9); POTASSIUM 3.7 mmol/L (3.5-5.1); TOTAL PROTEIN, SERUM 6.2 g/dL (6.0-8.3)
[2020-03-27 05:57] LABS: BAND NEUTROPHILS % (MANUAL) 3 % (0-2); EOSINOPHILS % (MANUAL) 2 % (1-6); LYMPHOCYTES % (MANUAL) 5 % (22-44); MAN.DIFF COMMENT-IMPRESSION MANUAL DIFFERENTIAL; METAMYELOCYTES % 1 % (0-0); MONOCYTES % (MANUAL) 1 % (2-9); SEGMENTED NEUTROPHILS % 88 % (40-70)
[2020-03-27 05:58] LABS: PLATELET MORPHOLOGY COMMENT ADEQUATE
[2020-03-27] MEDS: ALBUTEROL SULFATE 0.083% 2.5 MG/3 ML INH IH SCH ×4 (06:33→23:18)
--- NOTE | 2020-03-27 07:33 | NUR ---
CRITICAL RESULTS Received report of sputum culture report - endorsed to pt's primary nurse for MD notification.
[2020-03-27] MEDS: FAMOTIDINE/PF 20 MG/2 ML VIAL IV SCH ×2 (07:43→20:00)
[2020-03-27] MEDS: DESMOPRESSIN ACETATE NASAL SCH ×2 (07:43→20:02)
[2020-03-27] MEDS: HONEY 1 APPL/ML TUBE TP SCH (07:44)
[2020-03-27] MEDS: CEFEPIME HCL 2 GM VIAL IVP SCH (10:59)
--- NOTE | 2020-03-27 15:40 | NUR ---
DC PLAN GOT ORDER FOR [facility]. CALLED SISTER FOR CONSENT. WANTED TO KNOW ABOUT PEG. SPOKE TO SHERWIN SAID SISTER HAD SAID SHE WANTED TO WAIT. CALLED SISTER BACK SAID NO THERE WAS MISCOMMUNICATION. SHE IS OKAY WITH PEG AND CONSULT FOR GI. CALLED AND LET SHERWIN HOURLY MANAGER KNOW OF CONVERSATION. PREFERS PEG PLACED PRIOR TO DC TO [facility]. Addendum: 03/27/20 at 1552 by RODOLFO PARKINSON RN CM Amended: Links added.
--- NOTE | 2020-03-27 16:03 | NUR ---
GABRIEL FOLLOW UP Pt tolerating Tube Feeding Goal rate, Glucerna 1.5 @45mls/hr. LBM 03/27/20. Flushes at 350mls every 6 hours. Recommend continue current tube feeding. RD to continue to monitor nutritional labs, tolerance, hydration, weight. Addendum: 03/27/20 at [address] Amended: Links added.
[2020-03-27] MEDS: DOPAMINE 800MG/D5 250ML 250 ML IV PRN (19:34)
[2020-03-27] MEDS ORDERED: ACETAMINOPHEN 120 MG SUPPOSITORY RC PRN (20:00)
[2020-03-27] MEDS ORDERED: ACETAMINOPHEN ELIXIR 160 MG/5ML UDCUP PO PRN (20:00)
[2020-03-27] MEDS ORDERED: ACETAMINOPHEN 650 MG SUPPOSITORY RC PRN (20:30)
[2020-03-27] MEDS: MEROPENEM 1 GM VIAL IVP SCH (21:00)
[2020-03-28] VITALS (23 sets, daily range): BP systolic 92–131; BP diastolic 52–81
[2020-03-28] MEDS: METOCLOPRAMIDE 10 MG/2 ML VIAL IVP SCH ×4 (05:09→20:28)
[2020-03-28] MEDS: MIDODRINE HCL 5 MG TABLET PO SCH (05:10)
[2020-03-28 05:37] LABS: BASOPHILS % (AUTO) 0.3 % (0.0-5.0); EOSINOPHILS % (AUTO) 3.1 % (0.0-8.0); HEMATOCRIT 28.6 % (42-54); LYMPHOCYTES % (AUTO) 11.3 % (21.0-51.0); MEAN CORPUSCULAR HEMOGLOBIN 27.8 pg (27.0-33.0); MEAN CORPUSCULAR HGB CONC 30.8 g/dL (32.0-36.0); MEAN CORPUSCULAR VOLUME 90.2 fL (79-99); NEUTROPHILS % (AUTO) 81.3 % (40.0-77.0); PLATELET COUNT (AUTO) 243 K/uL (130-400); RED BLOOD CELL COUNT(AUTO) 3.17 MIL/uL (4.50-6.20); RED CELL DISTRIBUTION WIDTH 13.5 % (11.0-15.5); WHITE BLOOD COUNT (AUTO) 16.8 K/uL (4.8-10.8)
[2020-03-28 05:49] LABS: INR 1.04 (0.85-1.15); PARTIAL THROMBOPLASTIN TIME 32.2 SEC (26.3-35.5); PROTHROMBIN TIME 11.2 SEC (9.6-11.6)
[2020-03-28 06:07] LABS: ALBUMIN 2.1 g/dL (3.5-5.0); BILIRUBIN,TOTAL 0.4 mg/dL (0.2-1.0); MAGNESIUM 2.3 mg/dL (1.80-2.40); PHOSPHORUS 3.6 mg/dL (2.5-4.9); POTASSIUM 3.6 mmol/L (3.5-5.1); TOTAL PROTEIN, SERUM 6.8 g/dL (6.0-8.3)
[2020-03-28] MEDS: ALBUTEROL SULFATE 0.083% 2.5 MG/3 ML INH IH SCH ×3 (06:24→18:35)
[2020-03-28] MEDS ORDERED: KETAMINE 50MG/ML SYRINGE 50 MG/ML DISP.SYRIN IV ONE (07:36)
[2020-03-28] MEDS ORDERED: PROPOFOL 10 MG/ML 20ML VIAL IV ONE (07:54)
[2020-03-28] MEDS ORDERED: LEVOFLOXACIN 500 MG/D5W 100 ML 0 ML ONE (07:57)
[2020-03-28] MEDS: MEROPENEM 1 GM VIAL IVP SCH ×2 (09:06→20:15)
[2020-03-28] MEDS: FAMOTIDINE/PF 20 MG/2 ML VIAL IV SCH ×2 (09:06→20:15)
[2020-03-28] MEDS: DESMOPRESSIN ACETATE NASAL SCH ×2 (09:07→20:16)
[2020-03-28] MEDS: HONEY 1 APPL/ML TUBE TP SCH (09:07)
[2020-03-28] MEDS: DEXTROSE 5%-WATER 1,000 ML IV SCH ×3 (10:50→22:08)
--- NOTE | 2020-03-28 15:11 | NUR ---
[facility] consult Patient assessed as ordered. Patient's DTIs improving as per patient's nurse. All sites with allevyn life foam and being offloaded. No further recommendations at this time. May reconsult [facility] prn. Addendum: 03/28/20 at 1512 by ELAINE AQUINO RN/ Amended: Links added.
--- NOTE | 2020-03-28 17:48 | NUR ---
DC PLAN SPOKE TO SISTER. LET HER KNOW PEG PLACED PATIENT BACK IN ROOM. INFO HAD BEEN SENT TO [facility]. PENDING ACCEPTANCE. [facility] CALLED SAID THAT PATIENT IS ACCEPTED. MOT AND COVID FORM IN THE CHART PENDING SIGNATURE. EMS FILLED AND SENT ALSO IN THE CHART. LET SHERWIN CASTANEDA KNOW OF ACCEPTANCE. POSSIBLE DC TODAY. Addendum: 03/28/20 at 1751 by RODOLFO PARKINSON RN CM Amended: Links added.
--- NOTE | 2020-03-28 21:12 | NUR ---
PATIENT RECEIVED IN BED, HOB ELEVATED, PATIENT IS NONVERBAL, AT BASELINE. TOLERATING GLUCERNA 1.5 AT 45 ML/HR WELL. PATIENT ON LEVOPHED 0.02 MCG/KG/MIN (5.92ML). BP 107/63. PATIENT IS PENDING TRANSFER TO [facility]. REPORT CALLED AND SPOKE WITH KITTY ALATORRE LVN. EMS CALLED AT 2033. WILL AWAIT EMS ARRIVAL. WILL CONT TO MONITOR PATIENT CLOSELY.
--- NOTE | 2020-03-28 23:10 | NUR ---
EMS HERE TO TRANSFER PT TO [facility] FOR IV ANTIBIOTICS AND PHYSICAL THERAPY. ALL BELONGINGS TAKEN WITH PATIENT. LAST RECORDED BP 102/64, HR 67, 100% SATURATION 16 RR.
== END 2020-03-28 23:15 | DRG 870 ==
LOC: EDH 18:24 → EDHIP 20:43 → 2CH 22:49 → DAHIP 03-20 06:00
PROVIDERS: ADMIT Internal Medicine Critical Care Medicine; ATTEND Internal Medicine Critical Care Medicine
PROC: 5A1955Z Respiratory Ventilation, Greater than 96 Consecutive Hours (ICD-10-PCS; principal; 2020-03-16)
PROC: 0BH17EZ Insertion of Endotracheal Airway into Trachea, Via Natural or Artificial Opening (ICD-10-PCS; 2020-03-16)
PROC: 02H633Z Insertion of Infusion Device into Right Atrium, Percutaneous Approach (ICD-10-PCS; 2020-03-21)
PROC: 0DH63UZ Insertion of Feeding Device into Stomach, Percutaneous Approach (ICD-10-PCS; 2020-03-28)
DX: A41.9 Sepsis, unspecified organism (principal); G93.41 Metabolic encephalopathy; J96.01 Acute respiratory failure with hypoxia; N17.0 Acute kidney failure with tubular necrosis; R65.21 Severe sepsis with septic shock; J18.9 Pneumonia, unspecified organism; E87.0 Hyperosmolality and hypernatremia; E87.1 Hypo-osmolality and hyponatremia; J98.11 Atelectasis; Z16.24 Resistance to multiple antibiotics; F41.9 Anxiety disorder, unspecified; D64.9 Anemia, unspecified; D69.6 Thrombocytopenia, unspecified; E11.9 Type 2 diabetes mellitus without complications; E78.00 Pure hypercholesterolemia, unspecified; E78.5 Hyperlipidemia, unspecified; E86.0 Dehydration; E87.5 Hyperkalemia; E87.6 Hypokalemia; F03.90 Unspecified dementia, unspecified severity, without behavioral disturbance, psychotic disturbance, mood disturbance, and anxiety; F20.9 Schizophrenia, unspecified; I10 Essential (primary) hypertension; K21.9 Gastro-esophageal reflux disease without esophagitis; K80.20 Calculus of gallbladder without cholecystitis without obstruction; N40.0 Benign prostatic hyperplasia without lower urinary tract symptoms; R13.12 Dysphagia, oropharyngeal phase; R32 Unspecified urinary incontinence; R47.02 Dysphasia; R53.81 Other malaise; B96.4 Proteus (mirabilis) (morganii) as the cause of diseases classified elsewhere; R62.7 Adult failure to thrive; Z20.828 Contact with and (suspected) exposure to other viral communicable diseases; Z96.649 Presence of unspecified artificial hip joint; Y95 Nosocomial condition; Z68.26 Body mass index [BMI] 26.0-26.9, adult; Z74.01 Bed confinement status; Z88.0 Allergy status to penicillin; Z93.1 Gastrostomy status
CPT/HCPCS: 31500; 31720; 36415; 36600; 43246; 70450; 71045; 71250; 76705; 76770; 80048; 80051; 80053; 80178; 80305; 81003; 82140; 82150; 82248; 82533; 82550; 82570; 82728; 82803; 82948; 83605; 83615; 83690; 83735; 83874; 83930; 83935; 84100; 84133; 84145; 84295; 84300; 84439; 84443; 84484; 84550; 85025; 85027; 85378; 85384; 85520; 85610; 85730; 86022; 86140; 87040; 87071; 87077; 87088; 87186; 87205; 87633; 87635; 87804; 92526; 92610; 93005; 93306; 93970; 94002; 94003; 94150; 94640; 94664; 99291; A4357; A6250; C1751; C1894; G0378; G0480; G0481; J0330; J0456; J0461; J0692; J1265; J1650; J1815; J1956; J2185; J2543; J2704; J2765; J2930; J3010; J3370; J3480; J3490; J7030; J7070; J7120